=== PATIENT | male | born 1975 | race Caucasian/White ===

== ENCOUNTER 2023-11-03 09:19 | Emergency (ER) | payer OTHER ==
[~2023-11-03] VITALS: Ht 177.8 cm; Wt 68.0 kg
[2023-11-03] MEDS ORDERED: Ketorolac Tromethamine 30mg Vial IM ONE (10:35)
== END 2023-11-03 10:48 | disposition home or self-care (01) ==
LOC: ER 09:19
DX: M25.562 Pain in left knee (principal)
CPT/HCPCS: 73562-LT; 96372; 99282-25; J1885